=== PATIENT | male | born 1975 | race Two or more races ===

== ENCOUNTER 2022-10-20 09:14 | Emergency (ER) | payer OTHER ==
[~2022-10-20] VITALS: Ht 175.3 cm; Wt 113.4 kg
== END 2022-10-20 13:31 | disposition home or self-care (01) ==
LOC: ER 09:14
DX: S42.302A Unspecified fracture of shaft of humerus, left arm, initial encounter for closed fracture (principal); W19.XXXA Unspecified fall, initial encounter; Y93.67 Activity, basketball; Y92.9 Unspecified place or not applicable

== ENCOUNTER 2022-11-16 11:34 | Outpatient (CLI) | payer OTHER | END 2022-11-16 11:39 | disposition home or self-care (01) | LOC: RAD 11:34 | DX: S42.332A Displaced oblique fracture of shaft of humerus, left arm, initial encounter for closed fracture (principal) ==

== ENCOUNTER 2022-12-12 08:53 | Emergency (ER) | payer OTHER ==
[~2022-12-12] VITALS: Ht 175.3 cm; Wt 113.4 kg
[2022-12-12] MEDS ORDERED: CIPRODEX OTIC7.5 ML OT (10:04)
== END 2022-12-12 10:03 | disposition home or self-care (01) ==
LOC: ER 08:53
DX: H66.91 Otitis media, unspecified, right ear (principal)

== ENCOUNTER 2022-12-12 09:40 | Outpatient (CLI) | payer OTHER ==
[2022-12-12] MEDS ORDERED: CIPRODEX OTIC7.5 ML OT (10:04)
== END 2022-12-12 10:00 | disposition home or self-care (01) ==
LOC: RAD 09:40
DX: S42.332A Displaced oblique fracture of shaft of humerus, left arm, initial encounter for closed fracture (principal)

== ENCOUNTER 2023-12-27 09:05 | Emergency (ER) | payer OTHER ==
[~2023-12-27] VITALS: Ht 172.7 cm; Wt 77.1 kg
[~2023-12-27 09:05] MED LIST: CIPRODEX OTIC7.5 ML OT
[2023-12-27] MEDS ORDERED: TOPROL XL50 M1 PO (09:30)
[2023-12-27] MEDS ORDERED: TETANUS & DIPHTHERIA TOX,ADULT 0.5 ML VIAL IM STA (09:43)
[2023-12-27] MEDS ORDERED: CEFTRIAXONE SODIUM 1,000 MG VIAL IM STA (09:43)
== END 2023-12-27 10:15 | disposition home or self-care (01) ==
LOC: ER 09:05
DX: S80.811A Abrasion, right lower leg, initial encounter (principal)